=== PATIENT | female | born 2000 | race Caucasian/White ===

== ENCOUNTER 2022-10-11 19:45 | Inpatient (IN) ==
[2022-10-11] MEDS ORDERED: MEPERIDINE 50 MG/1 ML VIAL IV PRN (20:44)
[2022-10-11] MEDS ORDERED: TRANEXAMIC ACID 1,000 MG in SODIUM CHLORIDE 0.9% 100 ML IV PRN (20:44)
[2022-10-11] MEDS ORDERED: METHYLERGONOVINE 0.2 MG/1 ML AMP IM PRN (20:44)
[2022-10-11] MEDS ORDERED: OXYTOCIN/LR 20 UNIT/1,000 ML BAG IV ONE (20:44)
[2022-10-11] MEDS ORDERED: BUTORPHANOL 2 MG/ML VIAL IV PRN (20:44)
[2022-10-11] MEDS ORDERED: ONDANSETRON 4 MG/2 ML VIAL IV PRN (20:44)
[2022-10-11] MEDS ORDERED: CARBOPROST TROMETHAMINE 250 MCG/ML AMP IM PRN (20:44)
[2022-10-11] MEDS ORDERED: miSOPROStoL 200 MCG TABLET RECTAL PRN (20:44)
[2022-10-11 20:53] LABS: Basophils # 0.1 10*3/uL (0.0-0.2); Basophils % 0.4 % (0.0-0.8); Eosinophils # 0.1 10*3/uL (0.0-0.87); Eosinophils % 0.4 % (0.00-10.9); Hematocrit 27.1 VOL% (35.7-47.0); Hemoglobin 8.3 GM/DL (12.0-16.0); Immature Granulocytes % 1.2 %; Immature Granulocytes Absolute 0.16 #; Lymphocytes # 2.5 10*3/uL (1.4-4.0); Lymphocytes % 18.4 % (21.3-54.2); Mean Corpuscular HGB Conc 30.6 GM/DL (32-36); Mean Corpuscular Volume 74.2 FL (87-102); Mean Platelet Volume 10.7 FL (9.6-12.0); Monocytes # 0.9 10*3/uL (0.11-0.8); Monocytes % 6.7 % (1.7-12.7); NRBC # 0.04 10*3/uL; Neutrophils % 72.9 % (38.7-73.9); Platelet Count 424 T/CUMM (130-400); Red Blood Count 3.65 MC/CUMM (3.8-5.5); Red Cell Distribution Width 16.1 % (9.3-17.3); White Blood Count 13.4 T/CUMM (4-12)
[2022-10-11] MEDS ORDERED: LACTATED RINGERS 1,000 ML IV SCH (21:00)
[2022-10-11 21:07] LABS: Alanine Aminotransferase 12 U/L (13-56); Albumin 2.3 G/DL (3.4-5.0); Alkaline Phosphatase 178 U/L (45-117); Aspartate Amino Transferase 14 U/L (0-37); Bilirubin,Total < 0.39 MG/DL (0.20-1.00); Blood Urea Nitrogen 6 MG/DL (7-18); Calcium 9.2 MG/DL (8.5-10.1); Carbon Dioxide 21 MMOL/L (21-32); Chloride 106 MMOL/L (98-107); Glucose 102 MG/DL (74-106); Osmolality,Calculated 267.1 MOS/KG (273-304); Potassium 4.2 MMOL/L (3.5-5.1); Sodium 135 MMOL/L (136-145); Total Protein 6.5 G/DL (6.4-8.2)
[2022-10-12] MEDS ORDERED: PROMETHAZINE 25 MG/1 ML VIAL IM ONE (04:27)
[2022-10-12] MEDS ORDERED: diphenhydrAMINE 50 MG/1 ML VIAL IV PRN ×2 (04:27)
[2022-10-12] MEDS ORDERED: CITRIC ACID/SODIUM CITRATE 30 ML UDCUP PO ONE (04:27)
[2022-10-12] MEDS ORDERED: NALOXONE 0.4 MG/ML VIAL IV PRN (04:27)
[2022-10-12] MEDS ORDERED: LACTATED RINGERS 1,000 ML IV ONE (04:27)
[2022-10-12] MEDS ORDERED: hydrOXYzine HCL 25 MG/1 ML VIAL IM PRN (04:27)
[2022-10-12] MEDS ORDERED: FAMOTIDINE 20 MG/2 ML VIAL IV ONE (04:27)
[2022-10-12] MEDS ORDERED: LACTATED RINGERS 1,000 ML IV SCH (04:30)
[2022-10-12] MEDS ORDERED: fentaNYL 2 MCG/ROPIV 0.2% EPID 100 ML EPIDURAL SCH (04:30)
[2022-10-12] MEDS: ePHEDrine 50 MG/ML VIAL IV PRN ×2 (05:59→06:06)
[2022-10-12] MEDS ORDERED: OXYTOCIN/LR 20 UNIT/1,000 ML BAG IV SCH (07:00)
[2022-10-12 07:05] LABS: Bacteria,Urine Occasional /HPF (Few); Bilirubin,Urine Negative (Negative); Blood, Urine Negative (Negative); Glucose,Urine (UA) Negative (Negative); Ketones,Urine 15 mg/dL (Negative); Mucus,Urine Occasional /LPF (Occasional); Nitrite,Urine Negative (Negative); Protein,Urine Negative (Negative); RBC,Urine <1 /HPF (0-4); Squamous Epithelial Cell,Urine Occasional /HPF (0-10); Urine Appearance Clear (Clear); Urine Color Yellow (Yellow); Urine Urobilinogen 0.2 eU/dL (<2.0)
[2022-10-12 14:31] LABS: Cord Venous Blood HCO3 19.5 MMOL/L; Cord Venous Blood PCO2 44.3 MMHG; Cord Venous Blood PO2 23.7
[2022-10-12] MEDS ORDERED: HYDROCORTISONE 2.5% RECTAL CREAM 30 GM TUBE TOP PRN (17:25)
[2022-10-12] MEDS ORDERED: BENZOCAINE 20%/MENTHOL 0.5% SPRAY 56 GM CAN TOP PRN (17:25)
[2022-10-12] MEDS ORDERED: RHO(D) IMMUNE GLOBULIN 300 MCG SYRINGE IM ONE (17:25)
[2022-10-12] MEDS ORDERED: WITCH HAZEL PADS 100/JAR TOP PRN (17:25)
[2022-10-12] MEDS ORDERED: LANOLIN 50% CREAM 0.3 OZ TUBE TOP PRN (17:25)
[2022-10-12] MEDS ORDERED: MEASLES/MUMPS/RUBELLA VACCINE 0.5 ML VIAL SUBCUT ONE (17:25)
[2022-10-12] MEDS ORDERED: DIPH/TET/ACEL PERT BOOSTER VACCINE 0.5 ML VIAL IM ONE (17:25)
[2022-10-12] MEDS ORDERED: ACETAMINOPHEN 325 MG TABLET PO PRN (17:25)
[2022-10-12] MEDS ORDERED: OXYTOCIN/LR 20 UNIT/1,000 ML BAG IV ONE (17:25)
[2022-10-12] MEDS ORDERED: BISACODYL 10 MG SUPP RECTAL PRN (17:25)
[2022-10-12] MEDS ORDERED: oxyCODONE/ACETAMINOPHEN 5-325 MG TABLET PO PRN ×2 (17:25)
[2022-10-12] MEDS ORDERED: ONDANSETRON 4 MG/2 ML VIAL IV PRN (17:25)
[2022-10-12] MEDS: IBUPROFEN 800 MG TABLET PO PRN (18:10)
[2022-10-12] MEDS: DOCUSATE SODIUM 100 MG CAPSULE PO SCH (21:00)
[2022-10-13 05:05] LABS: Basophils # 0.1 10*3/uL (0.0-0.2); Basophils % 0.4 % (0.0-0.8); Eosinophils % 0.2 % (0.00-10.9); Hematocrit 24.5 VOL% (35.7-47.0); Hemoglobin 7.5 GM/DL (12.0-16.0); Immature Granulocytes % 1.3 %; Immature Granulocytes Absolute 0.25 #; Lymphocytes # 2.7 10*3/uL (1.4-4.0); Lymphocytes % 14.1 % (21.3-54.2); Mean Corpuscular HGB Conc 30.6 GM/DL (32-36); Mean Corpuscular Volume 74.9 FL (87-102); Mean Platelet Volume 10.7 FL (9.6-12.0); Monocytes # 1.2 10*3/uL (0.11-0.8); Platelet Count 384 T/CUMM (130-400); Red Blood Count 3.27 MC/CUMM (3.8-5.5); Red Cell Distribution Width 16.4 % (9.3-17.3); White Blood Count 19.4 T/CUMM (4-12)
[2022-10-13] MEDS: IRON (CARBONYL)/VIT C/B12/FA TABLET PO SCH (09:42)
[2022-10-13] MEDS: DOCUSATE SODIUM 100 MG CAPSULE PO SCH ×2 (09:43→20:52)
[2022-10-13] MEDS: IBUPROFEN 800 MG TABLET PO PRN (23:24)
[2022-10-14 07:42] VITALS: BP 111/70
[2022-10-14] MEDS: DOCUSATE SODIUM 100 MG CAPSULE PO SCH (10:00)
[2022-10-14] MEDS: IRON (CARBONYL)/VIT C/B12/FA TABLET PO SCH (10:00)
[2022-10-14] MEDS ORDERED: FUROSEMIDE 20 MG TABLET PO ONE (12:30)
== END 2022-10-14 13:55 | disposition home or self-care (01) | DRG 560 ==
LOC: N.LDOUT 19:45 → N.LD 19:46 → N.OB 10-12 17:35
PROVIDERS: ADMIT Specialist; ATTEND Specialist